=== PATIENT | male | born 1980 | race Caucasian/White ===

== ENCOUNTER 2022-08-20 18:50 | Inpatient (IN) | payer SELFPAY ==
[2022-08-20 18:55] VITALS: BMI 21.4
[2022-08-20 19:39] VITALS: BP 114/66; PULSE 105; RESP 18; TEMP 36.7; O2SAT 97
[2022-08-20] MEDS: clindamycin 150 mg Capsule 300 MG PO (21:27)
[2022-08-20] MEDS: lithium carbonate 150 mg Capsule PO (21:30)
--- NOTE | 2022-08-20 23:51 | PC.NURSE ---
Pt served with copy of 96 hour hold rights paperwork by this nurse and security. All question answered.
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
[2022-08-21 06:00] VITALS: BP 96/60; PULSE 87; RESP 16; TEMP 36.9; O2SAT 98
[2022-08-21] MEDS: lithium carbonate 150 mg Capsule PO ×3 (08:23→20:03)
[2022-08-21] MEDS: clindamycin 150 mg Capsule 300 MG PO ×4 (08:23→20:03)
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
[2022-08-21] MEDS: nicotine 2 mg Gum BUCCAL ×3 (10:49→20:29)
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
[2022-08-21 14:00] VITALS: BP 114/67; PULSE 79; RESP 16; TEMP 36.6; O2SAT 98
[2022-08-21 22:00] VITALS: BP 123/76; PULSE 86; RESP 17; TEMP 36.8; O2SAT 98
[2022-08-22 06:00] VITALS: BP 113/77; PULSE 82; RESP 16; TEMP 36.9; O2SAT 100
[2022-08-22] MEDS: lithium carbonate 150 mg Capsule PO ×2 (08:10→15:12)
[2022-08-22] MEDS: clindamycin 150 mg Capsule 300 MG PO ×3 (08:10→16:28)
[2022-08-22] MEDS: nicotine 2 mg Gum BUCCAL ×3 (08:19→16:28)
[2022-08-22 14:00] VITALS: BP 110/63; PULSE 92; RESP 17; TEMP 36.6; O2SAT 99
[2022-08-22 14:02] LABS: Add Urine Microscopic? YES; Bacteria Urine TRACE /hpf; Bilirubin Urine Neg (Negative); Blood Urine 2+ (Negative); Glucose Urine UA Norm (Normal); Ketones Urine Negative (Negative); Leukocyte Esterase Urine Negative (Negative); Nitrate Urine Negative (Negative); Protein Urine Trace (Negative); Specific Gravity, Urine 1.025 (1.005-1.030); Squamous Epithelial Cell Urine 0-4 /hpf (0-5); Urine Appearance Cloudy (CLEAR); Urine Color Yellow (Yellow); Urobilinogen Urine Norm (Negative); pH Urine 5 (5-7)
[2022-08-22 14:03] LABS: Add Urine Culture? No; Mucus Urine 1+ /hpf; Sperm Urine 1+ /hpf
[2022-08-22 14:16] LABS: Basophils # 0.1 10^3/uL (0.0-0.1); Basophils % 0.9 %; Eosinophils # 0.7 10^3/uL (0.0-0.8); Eosinophils % 8.4 %; Hemoglobin 15.4 g/dL (11.7-16.6); Lymphocytes # 1.7 10^3/uL (0.8-4.8); Lymphocytes % 21.3 %; Mean Corpuscular HGB Conc 32.1 g/dL (30.0-36.0); Mean Corpuscular Hemoglobin 27.5 pg (28.0-34.0); Mean Corpuscular Volume 85.6 fl (80-94); Mean Platelet Volume 8.8 fL (7.4-10.4); Monocytes # 0.6 10^3/uL (0.2-0.9); Monocytes % 7.5 %; Neutrophils # 4.78 10^3/uL (1.8-7.7); Neutrophils % 60.9 %; Nucleated Red Blood Cells % 0 %; Platelet Count 349 10^3/cmm (130-400); Red Blood Count 5.61 10^6/uL (4.1-5.3); Red Cell Distribution Width 12.8 % (12.1-15.1); White Blood Count 7.9 10^3/uL (4.0-10.0)
[2022-08-22 14:33] LABS: Alanine Aminotransferase 35 U/L (0-41); Albumin Level 4.1 g/dL (3.5-5.2); Alkaline Phosphatase 67 U/L (40-130); Anion Gap 12.6 (5-19); Aspartate Amino Transferase 40 U/L (0-40); Blood Urea Nitrogen 13 mg/dL (6-20); Calcium 9.2 mg/dL (8.5-10.5); Carbon Dioxide 28 mmol/L (22-29); Chloride 102 mmol/L (98-107); Globulin 2.4 g/dL (1.3-4.6); Glomerular Filtration Rate 82.3 mL/min (90-130); Glucose 82 mg/dL (65-115); Osmolality Calculated 285 mOsm/kg (285-295); Potassium 4.6 mmol/L (3.5-5.1); Sodium 138 mmol/L (136-145); Total Bilirubin 0.2 mg/dL (0.15-1.2); Total Protein 6.5 g/dL (6.6-8.7)
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
[2022-08-22 17:13] VITALS: BP 110/63; PULSE 92; RESP 17; TEMP 36.6; O2SAT 99
== END 2022-08-22 17:40 | disposition home or self-care (01) | DRG 885 ==
PROVIDERS: Admitting Provider Psychiatry & Neurology Psychiatry; Visit Provider Psychiatry & Neurology Psychiatry
DX: F31.9 Bipolar disorder, unspecified (principal); R45.851 Suicidal ideations; F15.10 Other stimulant abuse, uncomplicated; Z81.1 Family history of alcohol abuse and dependence; Z81.8 Family history of other mental and behavioral disorders
CPT/HCPCS: 36415; 80053; 81001; 85025; 97150; 97165; 99238